=== PATIENT | male | born 1935 | race Caucasian/White ===

== ENCOUNTER → 2017-01-02 | Outpatient (CLI) | payer MEDICARE ==
[~2017-01-02] MED LIST: ASPI81TA2 PO; CALC-52 PO; CHOL200014 PO; FENO90CA PO; FOLI1TAB15 PO; L.AC1CAP6 PO; LEUP30SY IM; LOSA100T44 PO; METF500T4 PO; METO25TA3 PO; NITR0.4T SL; PRAV10TA42 PO; PRED1TAB PO; PRED5TAB PO; RIVA20TA PO; [UNRECOGNIZED DRUG - CODE] PO
== END ==
LOC: LABN 14:06
PROVIDERS: ATTEND Family Medicine
DX: I26.99 Other pulmonary embolism without acute cor pulmonale (principal); M79.669 Pain in unspecified lower leg; R06.00 Dyspnea, unspecified; R06.2 Wheezing
CPT/HCPCS: 85379